=== PATIENT | female | born 1990 | race Caucasian/White ===

== ENCOUNTER 2018-06-21 07:02 | Emergency (ER) | payer OTHER ==
[2018-06-21] MEDS: DEXAMETHASONE 10 MG/ML 1 ML INJ IM (09:00)
[2018-06-21] MEDS: IPRATROPIUM (NEB) 0.5 MG/2.5 ML AMP NEB (09:02)
[2018-06-21] MEDS: ALBUTEROL 0.083% (NEB) 2.5 MG/3 ML AMP NEB (09:02)
== END 2018-06-21 10:02 | disposition home or self-care (01) ==
LOC: FTE 07:02
DX: G51.0 Bell's palsy (principal); F17.210 Nicotine dependence, cigarettes, uncomplicated; J06.9 Acute upper respiratory infection, unspecified
CPT/HCPCS: 94664; 96372; 99284-25